=== PATIENT | female | born 1940 | race Caucasian/White ===

== ENCOUNTER → 2017-09-10 | Outpatient (CLI) | payer MEDICARE, OTHER ==
--- NOTE | 2017-09-14 14:21 | MM ---
Reason for exam: screening (asymptomatic). Last mammogram was performed 3 years ago. History: Patient is postmenopausal and has history of endometrial cancer at age 60. Family history of breast cancer in maternal cousin. Benign excisional biopsy of the left breast. Took estrogen for 15 years. Took progesterone for 15 years. Physical Findings: A clinical breast exam by your physician is recommended on an annual basis and results should be correlated with mammographic findings. MG 3D Screening Mammo W/Cad Bilateral CC and MLO view(s) were taken. Prior study comparison: September 04, 2014, bilateral MG screening mammo w CAD. March 15, 2013, bilateral digital screening mammo w/CAD. There are scattered fibroglandular densities. There is chronic nodularity in the right axilla. There is no discrete abnormality. ASSESSMENT: Benign, BI-RAD 2 RECOMMENDATION: Routine screening mammogram of both breasts in 1 year.
== END | disposition home or self-care (01) ==
LOC: RADMAMWWP 07:27
PROVIDERS: ATTEND Family Medicine
DX: Z12.31 Encounter for screening mammogram for malignant neoplasm of breast (principal)
CPT/HCPCS: 77063; 77067

== ENCOUNTER → 2018-04-04 | Outpatient (CLI) | payer MEDICARE, OTHER ==
--- NOTE | 2018-04-04 11:24 | US ---
EXAMINATION TYPE: US gallbladder DATE OF EXAM: 04/04/2018 COMPARISON: NONE CLINICAL HISTORY: 78-year-old female Dyspepsia K30. TECHNIQUE: Multiple sonographic images of the right upper quadrant are obtained. FINDINGS: EXAM MEASUREMENTS: Liver Length: 11.9 cm Gallbladder Wall: 0.2 cm CBD: 0.3 cm Right Kidney: 10.0 x 4.1 x 5.2 cm Pancreas: Most of the pancreas is seen and shows no gross abnormality. There is a prominent duct at 2.5 mm falls within acceptable limits Liver: wnl Gallbladder: wnl Evidence for sonographic Caceres's sign: no CBD: wnl Right Kidney: No hydronephrosis . The inferior pole is obscured by bowel gas IMPRESSION: No evidence for gallstones or biliary ductal dilatation.
== END | disposition home or self-care (01) ==
LOC: RADUSWWP 09:00
PROVIDERS: ATTEND Family Medicine
DX: K30 Functional dyspepsia (principal)
CPT/HCPCS: 76705

== ENCOUNTER 2018-04-07 10:21 | Day surgery (SDC) | payer MEDICARE, OTHER ==
[2018-04-06 09:15] VITALS: BMI 24.1
[2018-04-07 11:10] VITALS: TEMP 98.6
[2018-04-07] MEDS ORDERED: LACTATED RINGERS 1,000 ML IV ONE (11:25)
[2018-04-07] MEDS ORDERED: LIDOCAINE 1% 20 ML VIAL (10MG/ML) FOR IV START INTRADERMA ONE (11:25)
[2018-04-07] MEDS ORDERED: LIDOCAINE 1% INJ 10MG/ML (20 ML MDV) ONE (11:56)
[2018-04-07] MEDS ORDERED: MIDAZOLAM 2 MG/2 ML VIAL ONE (11:56)
--- NOTE | 2018-04-07 11:58 | P.GSHP ---
History of Present Illness H&P Date: 04/07/18 Chief Complaint: Epigastric pain, peptic ulcer disease Cyst 78-year-old female who's had complaints of epigastric pain. She has a previous history of ulcer disease. She states her pain feels similar to her previous gastritis. Past Medical History Past Medical History: Cancer, Hypertension, Memory Impairment Additional Past Medical History / Comment(s): STATES BEGINNING ALZHEIMERS., BACK PAIN, HX ENDOMETRIAL CANCER, TESTS POSITIVE FOR TB-EXPOSURE A CHILD., STATES HAVING STOMACH PAIN AND NAUSEA. History of Any Multi-Drug Resistant Organisms: None Reported Past Surgical History: Hysterectomy Additional Past Surgical History / Comment(s): CATARACTS Past Anesthesia/Blood Transfusion Reactions: Motion Sickness, Postoperative Nausea & Vomiting (PONV) Past Psychological History: No Psychological Hx Reported Smoking Status: Former smoker Past Alcohol Use History: Occasional Additional Past Alcohol Use History / Comment(s): STATES SHE DRINKS BEER, OVER 7 DRINKS/WEEK. SMOKED A TEENAGER. Past Drug Use History: None Reported - Past Family History Mother Family Medical History: Cancer Additional Family Medical History / Comment(s): OVARIAN Medications and Allergies Home Medications Medication Instructions Recorded Confirmed Type Alendronate Sodium [Fosamax] 70 mg PO WEEKLY 04/06/18 04/07/18 History Aspirin 325 mg PO DAILY 04/06/18 04/06/18 History Atorvastatin [Lipitor] 20 mg PO DAILY 04/06/18 04/07/18 History Celecoxib [CeleBREX] 200 mg PO DAILY 04/06/18 04/06/18 History Donepezil [Aricept] 10 mg PO HS 04/06/18 04/07/18 History Ergocalciferol [Vitamin D2] 50,000 unit PO Q7D 04/06/18 04/07/18 History Levothyroxine Sodium [Synthroid] 50 mcg PO DAILY 04/06/18 04/07/18 History Multivitamins, Thera [Multivitamin 1 tab PO DAILY 04/06/18 04/07/18 History (formulary)] amLODIPine [Norvasc] 25 mg PO DAILY 04/06/18 04/07/18 History Allergies Allergy/AdvReac Type Severity Reaction Status Date / Time erythromycin base Allergy Unknown Rash/Hives, Verified 04/06/18 09:17 [From E-Mycin] Red Skin Sulfa (Sulfonamide Allergy Unknown Rash/Hives, Verified 04/06/18 09:17 Antibiotics) Red Skin Surgical - Exam Vital Signs Temp Pulse Resp BP Pulse Ox 98.6 F 72 16 184/77 99 04/07/18 11:09 04/07/18 11:09 04/07/18 11:09 04/07/18 11:09 04/07/18 11:09 - General well developed, well nourished, no distress - Eyes PERRL - ENT normal pinna - Neck no masses - Respiratory normal expansion - Cardiovascular Rhythm: regular - Abdomen Abdomen: soft, non tender Assessment and Plan Assessment: History gastritis, epigastric pain. We'll perform EGD
--- NOTE | 2018-04-07 12:04 | P.OP ---
Date of Procedure: 04/07/18 Preoperative Diagnosis: Epigastric dull pain Postoperative Diagnosis: Antral gastritis Anesthesia: MAC Surgeon: Flash Arora Pathology: other (Antrum) Condition: stable Disposition: PACU Description of Procedure: Patient's placed on the endoscopy table in the lateral position. She received IV sedation. The gastroscope was placed patient oropharynx passed in the esophagus and stomach. Scope was then placed through the pylorus. The first and second portion of duodenum appeared normal. The scope was then brought back the antrum and this was mildly inflamed. A biopsies performed. The scope was then retroflexed and there was a moderate size hiatal hernia. The GE junction was at 38 cm. The distal esophagus appeared inflamed and a biopsies performed. The proximal esophagus appeared normal. The scope was withdrawn for patient. There is no evidence of any active GI bleed.
[2018-04-07 12:12] VITALS: RESP 18
[2018-04-07 12:39] VITALS: BP 148/71; PULSE 74
== END 2018-04-07 13:28 | disposition home or self-care (01) ==
LOC: ORWHC2ENDO 10:21
PROVIDERS: ATTEND Surgery
DX: K31.9 Disease of stomach and duodenum, unspecified (principal); K21.0 Gastro-esophageal reflux disease with esophagitis; K44.9 Diaphragmatic hernia without obstruction or gangrene; I10 Essential (primary) hypertension; Z87.891 Personal history of nicotine dependence; Z85.42 Personal history of malignant neoplasm of other parts of uterus; E78.49 Other hyperlipidemia; Z79.82 Long term (current) use of aspirin; Z79.890 Hormone replacement therapy; Z79.899 Other long term (current) drug therapy; Z88.1 Allergy status to other antibiotic agents; Z88.2 Allergy status to sulfonamides
CPT/HCPCS: 88305; 43239; J2250; J2001

== ENCOUNTER → 2018-04-11 | Outpatient (CLI) | payer MEDICARE, OTHER ==
--- NOTE | 2018-04-11 09:11 | NM ---
EXAMINATION TYPE: NM hepatobiliary w EF DATE OF EXAM: 04/11/2018 COMPARISON: Gallbladder ultrasound from one week ago. HISTORY: Diminished appetite and epigastric pain with nausea and vomiting. TECHNIQUE: After the intravenous administration of 5.19 mCi Tc 99m Mebrofenin hepatobiliary scintigra phy is performed. Immediate images post injection. FINDINGS: There is satisfactory initial accumulation of tracer by the liver. The gallbladder is visualized wit hin 10 minutes. The small bowel activity is noted within 30 minutes. At one hour 8 ounces of oral e nsure plus is given to mimic CCK and gallbladder ejection fraction is calculated at 82 %, not diminis hed from the normal range. Therefore there is no scintigraphic evidence of cystic or common bile concepcion t obstruction to suggest acute cholecystitis . IMPRESSION: The ejection fraction is 82%, some consider this abnormal or a hyperkinetic response.
== END | disposition home or self-care (01) ==
LOC: RADNMMAIN 06:57
PROVIDERS: ATTEND Surgery
DX: K82.8 Other specified diseases of gallbladder (principal)
CPT/HCPCS: 78226; A9537

== ENCOUNTER 2018-04-29 09:30 | Day surgery (SDC) | payer MEDICARE, OTHER ==
[2018-04-27 10:07] VITALS: BMI 24.1
[~2018-04-29 09:30] MED LIST: DEXAMETHASONE SOD PHOSPHATE 10 MG/ML 1 ML VIAL IV ONE; HEPARIN SODIUM,PORCINE 5,000 UNIT/ML 1 ML VIAL SQ ONE; LACTATED RINGERS 1,000 ML IV SCH; LIDOCAINE 1% 20 ML VIAL (10MG/ML) FOR IV START INTRADERMA PRN; MIDAZOLAM (PF) 2 MG/2 ML VIAL IV PRN; ceFAZolin IN SWFI 2 GM/20 ML SYRINGE IVP ONE; fentaNYL (PF) 50 MCG/ML 2 ML AMP IV PRN
[2018-04-29] MEDS ORDERED: LACTATED RINGERS 1,000 ML IV ONE (09:45)
[2018-04-29] MEDS ORDERED: DEXAMETHASONE SOD PHOS (MDV) 100 MG/10 ML VIAL IVP ONE (09:58)
[2018-04-29] MEDS ORDERED: SCOPOLAMINE 1.5MG/72HR PATCH TRANSDERM ONE (09:59)
[2018-04-29] MEDS ORDERED: ONDANSETRON 4 MG/2 ML VIAL IVP ONE (09:59)
--- NOTE | 2018-04-29 10:05 | P.GSHP ---
History of Present Illness H&P Date: 04/29/18 Chief Complaint: Right upper quadrant pain This is a 78-year-old female who presents today for laparoscopic cholecystectomy. She's had complaints of right quadrant pain. Her recent HIDA scan shows an elevated ejection fraction consistent with biliary hyperkinesis. Past Medical History Past Medical History: Cancer, Dementia, Hearing Disorder / Deafness, Hyperlipidemia, Hypertension, Memory Impairment, Thyroid Disorder Additional Past Medical History / Comment(s): HIATAL HERNIA, ALZHEIMERS, BACK PAIN. HX ENDOMETRIAL CANCER in 1999. Recent STOMACH PAIN AND NAUSEA. "Tinnitus/ Age related hearing loss." History of Any Multi-Drug Resistant Organisms: None Reported Past Surgical History: Hysterectomy Additional Past Surgical History / Comment(s): BILATERAL CATARACTS. Past Anesthesia/Blood Transfusion Reactions: Motion Sickness, Postoperative Nausea & Vomiting (PONV) Past Psychological History: No Psychological Hx Reported Smoking Status: Former smoker Past Alcohol Use History: Occasional Additional Past Alcohol Use History / Comment(s): SMOKED A TEENAGER. Past Drug Use History: None Reported - Past Family History Mother Family Medical History: Cancer Additional Family Medical History / Comment(s): OVARIAN CANCER. Medications and Allergies Home Medications Medication Instructions Recorded Confirmed Type Atorvastatin [Lipitor] 20 mg PO QAM 04/06/18 04/27/18 History Celecoxib [CeleBREX] 200 mg PO DAILY 04/06/18 04/27/18 History Donepezil [Aricept] 10 mg PO HS 04/06/18 04/27/18 History Ergocalciferol [Vitamin D2] 50,000 unit PO Q7D 04/06/18 04/27/18 History Levothyroxine Sodium [Synthroid] 50 mcg PO QAM 04/06/18 04/27/18 History Multivitamins, Thera [Multivitamin 1 tab PO DAILY 04/06/18 04/27/18 History (formulary)] amLODIPine [Norvasc] 10 mg PO QAM 04/27/18 04/27/18 History Allergies Allergy/AdvReac Type Severity Reaction Status Date / Time erythromycin base Allergy Unknown Rash/Hives, Verified 04/27/18 09:47 [From E-Mycin] Red Skin Sulfa (Sulfonamide Allergy Unknown Rash/Hives, Verified 04/27/18 09:47 Antibiotics) Red Skin Surgical - Exam Vital Signs Temp Pulse Resp BP Pulse Ox 98.1 F 89 18 161/74 99 04/29/18 09:44 04/29/18 09:44 04/29/18 09:44 04/29/18 09:44 04/29/18 09:44 - General well developed, no distress - Eyes PERRL - ENT normal pinna - Neck no masses - Respiratory normal expansion - Cardiovascular Rhythm: regular - Abdomen Abdomen: soft, non tender Assessment and Plan Assessment: Right upper quadrant pain Chronic low cholecystitis Biliary hyperkinesis Laparoscopic cholecystectomy.
[2018-04-29] MEDS ORDERED: MIDAZOLAM 2 MG/2 ML VIAL ONE (11:41)
[2018-04-29] MEDS ORDERED: fentaNYL (PF) 50 MCG/ML 2 ML AMP ONE (11:41)
[2018-04-29] MEDS ORDERED: KETOROLAC 30 MG/ML 1 ML VIAL ONE (11:41)
[2018-04-29] MEDS ORDERED: LIDOCAINE 1% INJ 10MG/ML (20 ML MDV) ONE (11:41)
[2018-04-29] MEDS ORDERED: PROPOFOL 10 MG/ML 20 ML VIAL IV ONE (11:41)
[2018-04-29] MEDS ORDERED: ROCURONIUM BROMIDE 10 MG/ML 10 ML VIAL IV ONE (11:41)
[2018-04-29] MEDS ORDERED: NEOSTIGMINE 1 MG/ML 10 ML VIAL ONE (11:41)
[2018-04-29] MEDS ORDERED: GLYCOPYRROLATE 0.2 MG/ML 2 ML VIAL ONE (11:41)
[2018-04-29] MEDS ORDERED: BUPIVACAIN-EPI 0.25%-1:200,000 30 ML VIAL SQ ONE (12:04)
--- NOTE | 2018-04-29 12:17 | P.OP ---
Date of Procedure: 04/29/18 Preoperative Diagnosis: Cholecystitis Postoperative Diagnosis: Cholecystitis Procedure(s) Performed: Laparoscopic cholecystectomy Anesthesia: INGRID Surgeon: Flash Arora Estimated Blood Loss (ml): 5 Pathology: other (Gallbladder) Condition: stable Disposition: PACU Description of Procedure: The patient was placed on the operating table. The patient received a general endotracheal tube anesthesia. The patients abdomen was prepped and draped in the usual sterile fashion. Through an infraumbilical stab incision, the fascia of the anterior abdominal wall was grasped with a pair of Kochers and then the Veress needle was placed in the peritoneal cavity. Position of the Veress needle was confirmed with positive drop test. The abdomen was then insufflated. After adequate insufflation, the 10 mm trocar was placed in the peritoneal cavity. Following this the laparoscope was placed in the peritoneal cavity. The patient was placed in the head-up, right side up position and then a 5 mm trocar was placed in the right lateral and right subcostal position under direct visualization. A 8 mm trocar was placed in the epigastric position. The gallbladder was grasped in the fundus and infundibulum. Traction on the gallbladder was placed in the lateral and the cephalad positions. The triangle of Calot was visualized.. The cystic duct was bluntly dissected until the union of the cystic duct and common bile duct was seen. The cystic duct was then divided and sealed with the Harmonic scissors. A PDS Endoloop was then placed throughout the cystic duct stump. The cystic artery divided and sealed with the Harmonic scissors. The gallbladder was then removed from the liver bed using Harmonic scissors. The gallbladder was then extracted through the epigastric port site. Operative field was checked for any bleeding spots and Harmonic scissors was used to coagulate the liver bed. The abdomen was irrigated. The trocars were removed. The skin was closed using interrupted 3-0 Vicryl suture. Dermabond dressing were applied. The patient tolerated the procedure well.
[2018-04-29 12:33] VITALS: TEMP 97.6
[2018-04-29] MEDS ORDERED: SODIUM CHLORIDE 0.9% 1,000 ML IV ONE ×2 (12:54)
[2018-04-29 14:15] VITALS: BP 134/82; PULSE 90; RESP 18
== END 2018-04-29 14:29 | disposition home or self-care (01) ==
LOC: OR 09:30
PROVIDERS: ATTEND Surgery
DX: K81.1 Chronic cholecystitis (principal); H91.90 Unspecified hearing loss, unspecified ear; E78.5 Hyperlipidemia, unspecified; I10 Essential (primary) hypertension; F02.80 Dementia in other diseases classified elsewhere, unspecified severity, without behavioral disturbance, psychotic disturbance, mood disturbance, and anxiety; G30.9 Alzheimer's disease, unspecified; E07.9 Disorder of thyroid, unspecified; Z85.42 Personal history of malignant neoplasm of other parts of uterus; Z87.891 Personal history of nicotine dependence; Z88.1 Allergy status to other antibiotic agents; Z90.710 Acquired absence of both cervix and uterus; Z79.890 Hormone replacement therapy; Z79.1 Long term (current) use of non-steroidal anti-inflammatories (NSAID); Z79.899 Other long term (current) drug therapy; Z88.2 Allergy status to sulfonamides
CPT/HCPCS: 88304; 47562; J2250; J1644; J2710; J2405; J2001; J3010; J1885; J1100; J2704; J0690

== ENCOUNTER → 2018-11-18 | Outpatient (CLI) | payer MEDICARE ==
--- NOTE | 2018-11-21 10:25 | MM ---
Reason for exam: screening (asymptomatic). Last mammogram was performed 1 year and 2 months ago. History: Patient is postmenopausal and has history of endometrial cancer at age 60. Family history of breast cancer in maternal cousin. Benign excisional biopsy of the left breast. Took estrogen for 15 years. Took progesterone for 15 years. Physical Findings: A clinical breast exam by your physician is recommended on an annual basis and results should be correlated with mammographic findings. MG Screening Mammo w CAD Bilateral CC and MLO view(s) were taken. XCCL view(s) were taken of the left breast. Prior study comparison: September 10, 2017, bilateral MG 3d screening mammo w/cad. September 04, 2014, bilateral MG screening mammo w CAD. There are scattered fibroglandular densities. There is chronic nodularity in the right axilla. There is no discrete abnormality. ASSESSMENT: Negative, BI-RAD 1 RECOMMENDATION: Routine screening mammogram of both breasts in 1 year.
== END | disposition home or self-care (01) ==
LOC: RADMAMWWP 12:19
PROVIDERS: ATTEND Family Medicine
DX: Z12.31 Encounter for screening mammogram for malignant neoplasm of breast (principal)
CPT/HCPCS: 77067

== ENCOUNTER 2021-01-09 19:32 | Emergency (ER) | payer MEDICARE ==
[2021-01-09 19:41] VITALS: BP 121/68; PULSE 77; RESP 18; TEMP 97.8
--- NOTE | 2021-01-09 21:18 | CT ---
EXAMINATION TYPE: CT brain sasha boogie DATE OF EXAM: 01/09/2021 COMPARISON: None HISTORY: fall, facial injury CT DLP: 1241.4 mGycm Automated exposure control for dose reduction was used. TECHNIQUE: CT scan of the head and cervical spine are performed without contrast. FINDINGS: There is no acute intracranial hemorrhage, mass effect, or midline shift identified. The ventricles and sulci are within normal limits in size. The globes are intact and the visualized sin uses are clear. Age appropriate cerebral volume retraction. Cervical spine is visualized in its entirety from C1 through upper thoracic levels and demonstrates s atisfactory alignment without evidence of acute fracture or dislocation. Prevertebral soft tissue ap pears within normal limits. The C1-C2 articulation is unremarkable. Degenerative changes of the cer vical spine. Emphysematous changes. IMPRESSION: 1. There is no acute fracture or dislocation evident in the cervical spine. 2. No acute intracranial hemorrhage, mass effect, or midline shift is seen.
--- NOTE | 2021-01-09 21:22 | CT ---
EXAMINATION TYPE: CT facial bones wo con DATE OF EXAM: 01/09/2021 COMPARISON: None HISTORY: Fall, facial injury CT DLP: 1241.4 mGycm Automated exposure control for dose reduction was used. TECHNIQUE: CT scan of the sinuses is performed without contrast, axial images are obtained, coronal r eformatted images are also reviewed. FINDINGS: Mildly displaced fractures of the nasal bones The paranasal sinuses including the frontal, ethmoid, sphenoid, and maxillary sinuses bilaterally are well-aerated without abnormal opacification. The ost iomeatal complex is patent bilaterally on the coronal images. Visualized portion of mastoid air cells show no abnormal opacification. The globes are intact bilate rally. IMPRESSION: Minimally displaced fracture of the nasal bones without significant overlying swelling. C orrelate for point tenderness.
--- NOTE | 2021-01-09 21:45 | ED ---
General Adult HPI - General Chief complaint: Fall Stated complaint: Fall-Nose Injury Time Seen by Provider: 01/09/21 19:47 Source: patient, RN notes reviewed Mode of arrival: ambulatory Limitations: no limitations - History of Present Illness Initial comments: 80-year-old female with a past medical history of hyperlipidemia, hypertension, memory impairment presents to the emergency room for facial injury. Patient was going down the stairs at her porch and tripped on the last stair and fell. She hit her face on the ground. No loss of consciousness. No blood thinners. Patient states this was about 6 hours prior to arrival. Patient's nose was bleeding but it then stopped. However just prior to arrival started bleeding again so this prompted patient to come into the ER.Patient has no other complaints at this time including shortness of breath, chest pain, abdominal pain, nausea or vomiting, headache, or visual changes. - Related Data Home Medications Medication Instructions Recorded Confirmed Atorvastatin [Lipitor] 20 mg PO QAM 04/06/18 04/27/18 Celecoxib [CeleBREX] 200 mg PO DAILY 04/06/18 04/27/18 Donepezil [Aricept] 10 mg PO HS 04/06/18 04/27/18 Ergocalciferol [Vitamin D2] 50,000 unit PO Q7D 04/06/18 04/27/18 Levothyroxine Sodium [Synthroid] 50 mcg PO QAM 04/06/18 04/27/18 Multivitamins, Thera [Multivitamin 1 tab PO DAILY 04/06/18 04/27/18 (formulary)] amLODIPine [Norvasc] 10 mg PO QAM 04/27/18 04/27/18 Previous Rx's Medication Instructions Recorded Docusate [Colace] 100 mg PO BID #20 capsule 04/29/18 HYDROcodone/APAP 7.5-325MG [[place] 1 tab PO Q4H PRN 3 Days #18 tab 04/29/18 7.5-325] Allergies Allergy/AdvReac Type Severity Reaction Status Date / Time erythromycin base Allergy Unknown Rash/Hives, Verified 01/09/21 19:41 [From E-Mycin] Red Skin Sulfa (Sulfonamide Allergy Unknown Rash/Hives, Verified 01/09/21 19:41 Antibiotics) Red Skin Review of Systems ROS Statement: Those systems with pertinent positive or pertinent negative responses have been documented in the HPI. ROS Other: All systems not noted in ROS Statement are negative. Past Medical History Past Medical History: Cancer, Dementia, Hearing Disorder / Deafness, Hyperlipidemia, Hypertension, Memory Impairment, Thyroid Disorder Additional Past Medical History / Comment(s): HIATAL HERNIA, ALZHEIMERS, BACK PAIN. HX ENDOMETRIAL CANCER in 1999. Recent STOMACH PAIN AND NAUSEA. "Tinnitus/Age related hearing loss." History of Any Multi-Drug Resistant Organisms: None Reported Past Surgical History: Hysterectomy Additional Past Surgical History / Comment(s): BILATERAL CATARACTS. Past Anesthesia/Blood Transfusion Reactions: Motion Sickness, Postoperative Nausea & Vomiting (PONV) Past Psychological History: No Psychological Hx Reported Smoking Status: Never smoker Past Alcohol Use History: Occasional Past Drug Use History: None Reported - Past Family History Mother Family Medical History: Cancer Additional Family Medical History / Comment(s): OVARIAN CANCER. General Exam Limitations: no limitations General appearance: alert, in no apparent distress Head exam: Present: atraumatic Eye exam: Present: normal appearance, PERRL, EOMI. Absent: scleral icterus, conjunctival injection ENT exam: Present: normal exam, mucous membranes moist Neck exam: Present: normal inspection, full ROM. Absent: tenderness Respiratory exam: Present: normal lung sounds bilaterally. Absent: respiratory distress, wheezes Cardiovascular Exam: Present: regular rate, normal rhythm, normal heart sounds GI/Abdominal exam: Present: soft, normal bowel sounds. Absent: distended, tenderness Neurological exam: Present: alert Course Vital Signs 01/09/21 19:36 Temperature 97.8 F Pulse Rate 77 Respiratory 18 Rate Blood Pressure 121/68 O2 Sat by Pulse 97 Oximetry Medical Decision Making - Medical Decision Making CT brain shows no acute intracranial hemorrhage, mass effect, or midline shift. CT cervical spine shows no acute fracture or dislocation. CT facial bones does show a minimally displaced fracture of the nasal bones without significant overlying swelling. At this time patient admitted. Follow-up with primary care in ENT. She has an appointment in the morning with her primary care doctor. She will return here for any worsening symptoms. Disposition Clinical Impression: Nasal bone fracture Disposition: HOME SELF-CARE Condition: Good Instructions (If sedation given, give patient instructions): Nasal Fracture (ED) Additional Instructions: Please follow up with primary care or ENT. Try not to blow nose. Return to the ER for any worsening symptoms. Is patient prescribed a controlled substance at d/c from ED?: No Referrals: Diamond Ocasio DO [Primary Care Provider] - 1-2 days Sajan Webb MD [STAFF PHYSICIAN] - 1-2 days Time of Disposition: 21:48
== END 2021-01-09 22:03 | disposition home or self-care (01) ==
LOC: EC 19:32
DX: S02.2XXA Fracture of nasal bones, initial encounter for closed fracture (principal); I10 Essential (primary) hypertension; E78.5 Hyperlipidemia, unspecified; W01.198A Fall on same level from slipping, tripping and stumbling with subsequent striking against other object, initial encounter; Y92.008 Other place in unspecified non-institutional (private) residence as the place of occurrence of the external cause
CPT/HCPCS: 70450; 70486; 72125; 99284

== ENCOUNTER 2021-02-14 09:45 | Emergency (ER) | payer MEDICARE ==
[2021-02-14 09:59] VITALS: BP 135/90; PULSE 93; RESP 18; TEMP 98
[2021-02-14] MEDS ORDERED: KETOROLAC 15 MG/ML 1 ML VIAL IM STA (10:06)
--- NOTE | 2021-02-14 11:10 | XR ---
Right shoulder HISTORY: Trauma and pain 3 views of the right shoulder, no comparisons Bone mineralization is reduced. Right lung apex as visualized is normal. There is hypertrophic change of the acromioclavicular joint. Alignment is maintained. There are overlying artifacts. IMPRESSION: No acute fracture or dislocation is evident
--- NOTE | 2021-02-14 11:13 | XR ---
Lumbar spine HISTORY: Trauma and pain 3 views of the lumbar spine related to lumbar MRI dated 2009 There is loss of height of the superior endplate of T12. Spinal curvature is noted. Sclerosis is pres ent posterior elements lumbar spine. Anterolisthesis grade 1 L4-5, L5-S1. Atelectasis is grade 1 L3-4 . There is multilevel spondylosis. Loss of disc height is present in vertebral levels consistent with disc desiccation and degenerative disc disease. Bone mineralization is reduced. IMPRESSION: Degenerative disc disease, spinal listhesis, facet arthropathy, spinal curvature and oste openia. Loss of height of superior plate of T12 is noted on the frontal view, correlate for subacute osteoporotic compression fracture.
--- NOTE | 2021-02-14 11:17 | XR ---
Fourth digit left hand HISTORY: Pain and swelling 3 views of the fourth digit left hand There is a approximate 2 mm indeterminate ossific density medial and posterior to the distal aspect o f the proximal phalanx of the fourth digit left hand. There is soft tissue swelling present. Bony exc rescences noted dorsally at the proximal interphalangeal joint of the fourth digit left hand. IMPRESSION: Osteoarthritic changes, findings could be secondary to remote trauma, correlate
--- NOTE | 2021-02-14 11:25 | ED ---
Fall HPI - General Chief Complaint: Fall Stated Complaint: trip & fall, back pain Time Seen by Provider: 02/14/21 10:00 Source: patient, RN notes reviewed Mode of arrival: ambulatory - History of Present Illness Initial Comments: Patient is an 81-year-old female that presents to the emergency department complaining of low back right shoulder and left ring finger pain. She notes she fell approximately 2 days ago. She notes she was walking to the bathroom when she tried taking her pants off to save some time prior and tripped over the [employer] patient leg. She noted that she is just experiencing soreness in pain or low back shoulder left ring finger. She denied any saddle anesthesia, bladder or bowel incontinence/retention. She was otherwise well-appearing. She denied any other issues or complaints. She denied chest pain shortness of breath headache nausea vomiting diarrhea constipation fever fatigue chills. - Related Data Home Medications Medication Instructions Recorded Confirmed Atorvastatin [Lipitor] 20 mg PO QAM 04/06/18 04/27/18 Celecoxib [CeleBREX] 200 mg PO DAILY 04/06/18 04/27/18 Donepezil [Aricept] 10 mg PO HS 04/06/18 04/27/18 Ergocalciferol [Vitamin D2] 50,000 unit PO Q7D 04/06/18 04/27/18 Levothyroxine Sodium [Synthroid] 50 mcg PO QAM 04/06/18 04/27/18 Multivitamins, Thera [Multivitamin 1 tab PO DAILY 04/06/18 04/27/18 (formulary)] amLODIPine [Norvasc] 10 mg PO QAM 04/27/18 04/27/18 Previous Rx's Medication Instructions Recorded Docusate [Colace] 100 mg PO BID #20 capsule 04/29/18 HYDROcodone/APAP 7.5-325MG [[place] 1 tab PO Q4H PRN 3 Days #18 tab 04/29/18 7.5-325] Allergies Allergy/AdvReac Type Severity Reaction Status Date / Time erythromycin base Allergy Unknown Rash/Hives, Verified 02/14/21 09:57 [From E-Mycin] Red Skin Sulfa (Sulfonamide Allergy Unknown Rash/Hives, Verified 02/14/21 09:57 Antibiotics) Red Skin Review of Systems ROS Statement: Those systems with pertinent positive or pertinent negative responses have been documented in the HPI. ROS Other: All systems not noted in ROS Statement are negative. Past Medical History Past Medical History: Cancer, Dementia, Hearing Disorder / Deafness, Hyperlipidemia, Hypertension, Memory Impairment, Thyroid Disorder Additional Past Medical History / Comment(s): HIATAL HERNIA, ALZHEIMERS, BACK PAIN. HX ENDOMETRIAL CANCER in 1999. Recent STOMACH PAIN AND NAUSEA. "Tinnitus/Age related hearing loss." History of Any Multi-Drug Resistant Organisms: None Reported Past Surgical History: Hysterectomy Additional Past Surgical History / Comment(s): BILATERAL CATARACTS. Past Anesthesia/Blood Transfusion Reactions: Motion Sickness, Postoperative Nausea & Vomiting (PONV) Past Psychological History: No Psychological Hx Reported Smoking Status: Never smoker Past Alcohol Use History: Occasional Past Drug Use History: None Reported - Past Family History Mother Family Medical History: Cancer Additional Family Medical History / Comment(s): OVARIAN CANCER. General Exam Limitations: no limitations General appearance: alert, in no apparent distress Head exam: Present: atraumatic, normocephalic, normal inspection Eye exam: Present: normal appearance, PERRL, EOMI. Absent: scleral icterus, conjunctival injection, periorbital swelling ENT exam: Present: normal exam, mucous membranes moist Neck exam: Present: normal inspection Respiratory exam: Present: normal lung sounds bilaterally. Absent: respiratory distress, wheezes, rales, rhonchi, stridor Cardiovascular Exam: Present: regular rate, normal rhythm, normal heart sounds. Absent: systolic murmur, diastolic murmur, rubs, gallop, clicks GI/Abdominal exam: Present: soft, normal bowel sounds. Absent: distended, tenderness, guarding, rebound, rigid Extremities exam: Present: normal inspection, full ROM, normal capillary refill. Absent: tenderness, pedal edema, joint swelling, calf tenderness Back exam: Present: normal inspection, tenderness (Mid lower back) Neurological exam: Present: alert, oriented X3 Psychiatric exam: Present: normal affect, normal mood Skin exam: Present: warm, dry, intact, normal color. Absent: rash Course Vital Signs 02/14/21 09:57 Temperature 98 F Pulse Rate 93 Respiratory 18 Rate Blood Pressure 135/90 O2 Sat by Pulse 95 Oximetry Medical Decision Making - Medical Decision Making 81-year-old female complaining of low back pain right shoulder pain and left ring finger pain. X-rays of the low back, right shoulder and left ring finger ordered. 15 mg of Toradol for pain ordered. X-ray left ring finger: Osteoarthritic changes findings could be secondary to remote trauma. Correlate. There is a approximate 2 mm indeterminate ossific density medial and posterior to the distal aspect of the proximal phalanx of the fourth digit left hand. There is soft tissue swelling present bony excrescences noted distally and at the proximal interphalangeal joint of the fourth digit left hand. X-ray lumbar spine: Degenerative disc disease. Spinal listhesis. Facet arthropathy, spinal curvature and osteopenia. Loss of height of superior endplate of T12 is noted on the frontal view correlate for subacute osteoporotic compression fracture. Right shoulder x-ray: No acute fracture dislocation noted. Ring removed from left ring finger. Case discussed with Dr. Gonzales, patient discharge without orthopedics. - Radiology Data Radiology results: report reviewed, image reviewed X-ray left ring finger: Osteoarthritic changes findings could be secondary to remote trauma. Correlate. There is a approximate 2 mm indeterminate ossific density medial and posterior to the distal aspect of the proximal phalanx of the fourth digit left hand. There is soft tissue swelling present bony excrescences noted distally and at the proximal interphalangeal joint of the fourth digit left hand. X-ray lumbar spine: Degenerative disc disease. Spinal listhesis. Facet arthropathy, spinal curvature and osteopenia. Loss of height of superior endplate of T12 is noted on the frontal view correlate for subacute osteoporotic compression fracture. Right shoulder x-ray: No acute fracture dislocation noted. Disposition Clinical Impression: Fall, T12 compression fracture Disposition: HOME SELF-CARE Condition: Stable Instructions (If sedation given, give patient instructions): Fall Prevention for Older Adults (ED) Additional Instructions: Please return to the Emergency Department if symptoms worsen or any other concerns. Follow-up primary care 1-2 days. Take Tylenol and Motrin alternating every 3 hours for pain. Follow-up with orthopedics as needed. Is patient prescribed a controlled substance at d/c from ED?: No Referrals: Diamond Ocasio DO [Primary Care Provider] - 1-2 days Migel Cullen DO [Doctor of Osteopathic Medicine] - 1-2 days Time of Disposition: 12:28
== END 2021-02-14 12:44 | disposition home or self-care (01) ==
LOC: EC 09:45
DX: S22.080A Wedge compression fracture of T11-T12 vertebra, initial encounter for closed fracture (principal); F03.90 Unspecified dementia, unspecified severity, without behavioral disturbance, psychotic disturbance, mood disturbance, and anxiety; E78.5 Hyperlipidemia, unspecified; I10 Essential (primary) hypertension; E07.9 Disorder of thyroid, unspecified; Z88.1 Allergy status to other antibiotic agents; Z88.2 Allergy status to sulfonamides; Z85.42 Personal history of malignant neoplasm of other parts of uterus; Z90.710 Acquired absence of both cervix and uterus; W01.10XA Fall on same level from slipping, tripping and stumbling with subsequent striking against unspecified object, initial encounter
CPT/HCPCS: 99283 ×2; 96372 ×2; 72100; 73030; 73140; J1885

== ENCOUNTER → 2023-02-19 | Outpatient (CLI) | payer MEDICARE | END | disposition home or self-care (01) | LOC: LABPAT 08:20 | PROVIDERS: ATTEND Orthopaedic Surgery | DX: Z01.812 Encounter for preprocedural laboratory examination (principal); M16.11 Unilateral primary osteoarthritis, right hip; Z22.322 Carrier or suspected carrier of Methicillin resistant Staphylococcus aureus | CPT/HCPCS: 86850; 86900; 86901; 87070 ==

== ENCOUNTER 2023-03-01 13:07 | Day surgery (SDC) | payer MEDICARE ==
--- NOTE | 2023-02-28 18:25 | HP ---
HISTORY AND PHYSICAL DATE OF SURGERY: 03/01/2023. HISTORY OF PRESENT ILLNESS: Litzy Finn is an 83-year-old patient, seen with symptomatic right hip osteoarthritis. We discussed options for treatment. She elected to proceed with direct anterior right total hip arthroplasty. Consent was obtained. Medical clearance was provided by Dr. Diamond Ocasio. PAST MEDICAL HISTORY: Hyperlipidemia, hypothyroidism, and osteoporosis. PAST SURGICAL HISTORY: Noncontributory. DAILY MEDICATIONS: 1. Atorvastatin. 2. Celebrex. 3. Levothyroxine. 4. Pantoprazole. 5. Benazepril. ALLERGIES: 1. Erythromycin. 2. Sulfa. SOCIAL HISTORY: She denies tobacco use. PHYSICAL EVALUATION OF THE RIGHT HIP: She has diffuse tenderness about the hip girdle. Positive hip impingement sign. Straight-leg raise is negative. Her distal neurovascular exam is intact. IMAGING STUDIES: Radiographs of right hip reveal severe osteoarthritic changes. IMPRESSION: 1. Right hip osteoarthritis. 2. Hyperlipidemia. 3. Hypothyroidism. PLAN: Direct anterior right total hip arthroplasty. MMODL / IJN: [id number] /
[~2023-03-01 13:07] MED LIST changes: +ACETAMINOPHEN TAB 500 MG TAB PO PRN; -DEXAMETHASONE SOD PHOSPHATE 10 MG/ML 1 ML VIAL IV ONE; -HEPARIN SODIUM,PORCINE 5,000 UNIT/ML 1 ML VIAL SQ ONE; +HYDROmorphone 0.5 MG/0.5 ML SYRINGE IVP PRN; -LACTATED RINGERS 1,000 ML IV SCH; +LIDOCAINE 1% (10MG/ML) FOR IV START INTRADERMA PRN; -LIDOCAINE 1% 20 ML VIAL (10MG/ML) FOR IV START INTRADERMA PRN; +MELOXICAM 7.5 MG TAB PO PRN; -MIDAZOLAM (PF) 2 MG/2 ML VIAL IV PRN; +ONDANSETRON 4 MG/2 ML VIAL IVP ONE; +TRANEXAMIC 1,000 MG/100ML-NACL 1,000 MG in SALINE 1 100ML.BAG IVPB PRN; -ceFAZolin IN SWFI 2 GM/20 ML SYRINGE IVP ONE; -fentaNYL (PF) 50 MCG/ML 2 ML AMP IV PRN
[2023-03-01] MEDS: LACTATED RINGERS 1,000 ML IV SCH (14:24)
[2023-03-01] MEDS ORDERED: DEXAMETHASONE SOD PHOSPHATE 4 MG/ML 1 ML VIAL IVP ONE (14:25)
[2023-03-01] MEDS ORDERED: fentaNYL (PF) 50 MCG/ML 2 ML AMP IVP ONE (14:44)
[2023-03-01] MEDS ORDERED: MIDAZOLAM 2 MG/2 ML VIAL IVP ONE (14:44)
[2023-03-01] MEDS ORDERED: ROPIVACAINE 5 MG/ML 30 ML VIAL ONE (15:46)
[2023-03-01] MEDS ORDERED: PROPOFOL 10 MG/ML 20 ML VIAL IV ONE (15:46)
[2023-03-01] MEDS ORDERED: MIDAZOLAM 2 MG/2 ML VIAL ONE (15:46)
[2023-03-01] MEDS ORDERED: fentaNYL (PF) 50 MCG/ML 2 ML AMP ONE (15:46)
[2023-03-01] MEDS ORDERED: TRANEXAMIC 1,000 MG/100ML-NACL PREMIX BAG ONE (15:46)
[2023-03-01] MEDS ORDERED: LACTATED RINGERS 1,000 ML IV ONE (17:11)
--- NOTE | 2023-03-01 17:16 | P.ANPRN ---
Procedure Note - Anesthesia - Nerve Block Performed Right [place] Single Time Out Performed: Yes ([id number]) Date of Procedure: 03/01/23 Procedure Start Time: 13:50 Procedure Stop Time: 13:55 Location of Patient: PreOp Indication: Acute Post-Operative Pain, Requested by Surgeon Specifically requested for management of pain by DrHong: Aaron Landa Sedation Type: Sedate with meaningful contact maintained Preparation: Sterile Prep Position: Supine Catheter: None Needle Types: Pajunk Needle Gauge: 21 Ultrasound used to visualize needle placement: Yes Ultrasound used to observe medication spread: Yes Injectate: 0.5% Ropivacaine (see comment for volume) (30cc) Blood Aspirated: No Pain Paresthesia on Injection Noted: No Resistance on Injection: Normal Image Stored and Saved: Yes Events: Uneventful and Well Tolerated
[2023-03-01] MEDS ORDERED: HYDROcodone/APAP 5-325MG 1 EACH TAB PO PRN (17:23)
[2023-03-01] MEDS ORDERED: HYDROmorphone 0.5 MG/0.5 ML SYRINGE IVP PRN ×3 (17:23)
[2023-03-01] MEDS ORDERED: ONDANSETRON 4 MG/2 ML VIAL IVP PRN (17:23)
[2023-03-01] MEDS ORDERED: NALOXONE 0.4 MG/ML 1 ML VIAL IV PRN (17:23)
--- NOTE | 2023-03-01 17:23 | P.OP ---
Date of Procedure: 03/01/23 Preoperative Diagnosis: Right hip osteoarthritis Postoperative Diagnosis: Right hip osteoarthritis Procedure(s) Performed: Direct anterior right total hip arthroplasty Implants: 1. Depuy Corail 125 size 11 with collar press-fit femoral stem 2. Depuy Corail 54 mm press-fit acetabular shell 3. Depuy Corail neutral polyethylene acetabular liner 36 ID 54 OD 4. Biolox delta ceramic femoral head +1.5 36 mm Anesthesia: regional (erector spinae block), spinal Surgeon: Aaron Landa Director Mortgage #1: Schuyler Willett Estimated Blood Loss (ml): 65 Pathology: none sent Condition: stable Disposition: PACU Indications for Procedure: 83-year-old patient who was seen with symptomatic right hip osteoarthritis. After having treatment options discussed, she elected to proceed with direct anterior right total hip arthroplasty. Operative Findings: See description of procedure Description of Procedure: The patient was taken to the operative suite. Patient underwent a spinal a nesthetic by the department of anesthesia. Patient was then transferred to the [place] table. Patient was given preoperative IV antibiotics and TXA. Both lower extremities were placed in standard leg spars. The hip was then prepped and draped in the normal sterile orthopedic fashion. A standard anterior incision was made beginning 3 cm lateral and 1 cm distal to the ASIS extending 10 cm. Dissection was then carried down through the subcutaneous soft tissues down to the fascia overlying the tensor fascia mary. An incision was now made through the fascia. Careful dissection was taken down exposing the tensor fascia mary muscle. A Cobra retractor was now placed along the medial femoral neck and a second one along the lateral femoral neck. The venous circumflex vessels were now identified, cauterized and clipped. We identified the anterior hip capsule. An incision was made through the hip capsule along the lateral border. I performed a partial anterior capsulectomy. Retractors were now placed around the femoral neck itself. A femoral neck cut was now made with a sagittal saw. It was completed with an osteotome at the lateral neck area. The femoral head was now removed without difficulty. The extremity was now rotated to 60 of external rotation. It was locked in position. Residual labrum was now debrided out. Serial reaming was performed of the acetabulum while Olivier BRADLEY assisted holding an anterior retractor for exposure. Once we reached the appropriate size and a trial was position and fit nicely. The appropriate size was now chosen opened and made available. It was introduced into the acetabulum without difficulty. The C-arm/fluoroscopy was now brought into the operative field. We made sure we had a true AP pelvic view. We now under direct C- arm/fluoroscopy introduced into the acetabular component with appropriate version and inclination. I held the cup in appropriate position well Olivier BRADLEY used a mallet to seat the acetabular component. I noted the component now to be well seated and stable. Acetabular cup introduce her was removed. The C-arm was pulled back. An appropriate liner was introduced and clicked into position. It was felt to be stable. At this point retractors were removed. The extremity was now placed into 120 external rotation with no traction. The leg was now dropped to the ground and adducted. Appropriate retractors were now positioned along the proximal femur. We also placed our femoral look into position. Additional capsular releasing was performed to gain access to the proximal femur. We now used a box osteotome. A canal finder was now utilized. Serial broaching was now performed with the assistance of Olivier BRADLEY tapping the broaches down with a mallet while held the broach in appropriate rotation and position. This was done until we reached the appropriate size with good overall rotational stability. I removed the broach. I did note a small crack in the calcar proximally. It was a very stable crack but I decided to put a cable as a prophylactic measure. I now applied a Stephani metallic cable along the proximal calcar area and secured it. I reintroduced the broach and appeared to be secure. Appropriate calcar planing was performed. A trial head/neck was placed into position. The hip was now reduced. The C-arm/fluoroscopy was brought back into the operative field. I obtained AP pelvis was demonstrated adequate leg length alignment. The C-arm/fluoroscopy was pulled back. Retractors were repositioned and the hip was dislocated. The leg was again taken down to the ground and adducted. Appropriate retractors were repositioned as well as the femoral hook. All trial components were removed. The femoral implant was opened along with the femoral head. The femoral implant was introduced on the appropriate handle into our pre-broached area. I held the component position well Olivier BRADLEY used a mallet to seat the femoral component. The femoral component was now noted to be well seated and stable.. The femoral head was introduced with good positioning and fixation noted. Retractors were now removed. The hip was now reduced. There appeared be good positioning of the hip confirmed on intraoperative fluoroscopy. Spot films were obtained to document this. A second gram of TXA was given. Bipolar cautery had been utilized intermittently through the procedure for hemostasis. The wound was irrigated copiously with pulse lavage mechanical irrigation. The fascia was repaired with Vicryl suture. The subcutaneous soft tissues were repaired in layers with Vicryl suture. The skin was approximated with pernio/Dermabond. Sterile dressings were applied. Patient was then awakened, transferred to a bed and taken to recovery in stable condition. Olivier BRADLEY assisted with the complex procedure.
--- NOTE | 2023-03-01 17:34 | FL ---
Intraoperative/procedural fluoroscopic services were provided. Total fluoroscopy time is 13 seconds w ith a total of 4 submitted images to PACS. Please see the operative/procedural note for further detai ls. DAP: 0.5668 mGym2 Gycm2
[2023-03-01] MEDS ORDERED: HYDROmorphone 0.5 MG/0.5 ML SYRINGE IVP ONE ×2 (17:52→18:07)
[2023-03-01] MEDS: SENNOSIDES-DOCUSATE SODIUM 1 EACH TAB PO SCH (21:49)
[2023-03-01] MEDS: HYDROcodone/APAP 5-325MG 1 EACH TAB PO PRN (21:49)
[2023-03-01] MEDS: SODIUM CHLORIDE 0.9% 1,000 ML IV SCH (21:51)
[2023-03-02] MEDS: LACTATED RINGERS 1,000 ML IV SCH (05:29)
[2023-03-02] MEDS: HYDROcodone/APAP 5-325MG 1 EACH TAB PO PRN ×3 (06:56→15:30)
[2023-03-02] MEDS: ENOXAPARIN 40 MG/0.4 ML SYRINGE SQ SCH (08:08)
[2023-03-02 09:31] LABS: HCT 35.7 % (37.2-46.3); HGB 11.8 g/dL (12.0-15.0); MCH 33.5 pg (27.0-32.0); MCHC 33.1 g/dL (32.0-37.0); MCV 101.4 FL (80.0-97.0); Mean Platelet Volume 11.2 FL (9.5-12.2); NRBC Per 100 WBC 0 X 10*3/uL (0.00-0.01); Platelet Count 265 X 10*3/uL (140-440); RBC 3.52 X 10*6/uL (4.10-5.20); RDW 12.2 % (11.5-14.5); WBC 10.87 X 10*3/uL (4.50-10.00)
[2023-03-02 10:07] LABS: Basophils # (A) 0.03 X 10*3/uL (0.00-0.10); Basophils % (A) 0.3 %; Eosinophils # (A) 0 X 10*3/uL (0.04-0.35); Eosinophils % (A) 0 %; Lymphocytes # (A) 0.72 X 10*3/uL (0.90-5.00); Lymphocytes % (A) 6.6 %; Monocytes # (A) 1.51 X 10*3/uL (0.20-1.00); Monocytes % (A) 13.9 %; Neutrophils # (A) 8.56 X 10*3/uL (1.80-7.70); Neutrophils % (A) 78.7 %
--- NOTE | 2023-03-02 11:13 | P.PN ---
Subjective Progress Note Date: 03/02/23 Principal diagnosis: Right hip osteoarthritis Patient was seen at bedside this morning lying semirecumbent position with dressing over right hip. Patient says her pain is controlled currently. Patient says she has gotten up a couple times overnight to use the restroom. Patient says she is hoping to go home later today. Patient says she has not yet worked with physical therapy. Patient says she has urinated without issue since surgery. Patient denies chest pain, fever, shortness of breath, nausea, vomiting, change in vision, loss of bowel/bladder control. Objective - Vital Signs Vital signs: Vital Signs Temp 97.4 F L 03/02/23 07:05 Pulse 79 03/02/23 07:05 Resp 16 03/02/23 07:05 BP 120/71 03/02/23 07:05 Pulse Ox 96 03/02/23 07:05 FiO2 Intake & Output 03/01/23 03/02/23 03/02/23 18:59 06:59 18:59 Intake Total 1650 Output Total 200 300 Balance 1450 -300 Weight 64.6 kg Intake: IV 1650 Output: Urine 300 Estimated Blood Loss 200 Other: Voiding Method Bedside Commode External Catheter # Voids 1 - Exam Right hip: Incision is clean, dry, and intact. The slower foam dressing is in good condition. There is minimal soft tissue swelling and ecchymosis surrounding the medial and lateral aspects of the incision. Calf is soft, no tenderness with palpation. Plantar flexion, dorsiflexion, EHL, FHL are intact. Sensory exam to light touch throughout the extremity is intact, dorsal pedis pulses 2+. - Labs CBC & Chem 7: 03/02/23 04:49 Assessment and Plan Assessment: 1. Right hip osteoarthritis - Postop day 1 status post right total hip arthroplasty Plan: 1. Right hip osteoarthritis - total hip arthroplasty performed yesterday, W edday, 03/01/2023. Patient stable at bedside this morning. Pending PT/OT evaluation, plan for discharge home with health services today. 2. Appreciate medical management 3. Pain management - [address] 4. GI prophylaxis - senna 5. DVT prophylaxis - Xarelto 6. PT/OT - weightbearing as tolerated with walker 7. Encourage incentive spirometer use 8. Discharge planning - discharge home today with health services pending PT/OT evaluations Time with Patient: Less than 30
--- NOTE | 2023-03-02 11:22 | P.DS ---
Providers Date of admission: 03/01/2023 Expected date of discharge: 03/02/23 Attending physician: Aaron Landa Consults: 03/01/23 17:23 Consult Physician Routine Consulting Provider: Dimitri Ocasio Reason/Comments: Medical management Do you want consulting provider notified?: Yes Primary care physician: Diamond Ocasio [facility] Course: Date of admission: 03/01/2023 Date of discharge: 03/02/2023 Admission diagnosis: Hip osteoarthritis Discharge diagnosis: Same Attending physician: Dr. Landa Surgical procedures: Right total hip arthroplasty Brief history: Patient is a 83-year-old female with a history of progressive primary right hip osteoarthritis. At this point patient has failed conservative treatment measures and has opted to proceed with a elective right total hip arthroplasty. Hospital course: Details of patient's surgery can be found in operative report. Patient tolerated the procedure well and was subsequently transported to orthopedic floor. Patient's orthopeidc and medical care was provided daily. Patient had daily laboratory tests performed for evaluation of overall blood counts. Patient had daily physical therapy to include strengthening range of motion as well as education with walker ambulation. Patient was treated with Lovenox for their postoperative DVT prophylaxis during their inpatient stay. Patient was noted to have a relatively uneventful postoperative course. Patient reported satisfactory pain control with oral pain medications by postoperative day 1. Patient showed satisfactory progress with physical therapy. Patient moved steadily through the program and had no difficulty meeting the goals by postoperative day 1. Given patient's otherwise satisfactory course and having met physical therapy goals, plan is to discharge patient home with health services on postoperative day 1. Discharge condition/disposition: Patient will be discharged home with health services in stable condition. Discharge medications: Instructions are given on resumption of patient's normal daily medications per primary care recommendation, in addition patient will be prescribed [place]; senna; aspirin 81 mg twice a day 30 days. Discharge instructions: 1. Wound care and infection precautions, keep incision dry and covered while showering, no lotions, creams, moisturizers. No soaking, tubs, pools, hottubs. Do not scrub over the incision. 2. Weight-bear as tolerated with walker / cane until follow-up. 3. Ice and elevate when necessary. Do not exceed 20 minutes per hour with ice pack. 4. Utilize compression sleeve until seen at first follow up appointment. 5. Visiting nursing care. 6. Home physical therapy including home CPM. 7. Pain meds and anticoagulants per prescription. 8. Pain medication has potential to cause constipation. Increase oral fluid and fiber intake. Contact primary care provider if you have not had a bowel movement within 48 hours after discharge 9. No anti-inflammatory medication until discussed at first post operative visit, this including Motrin, Aleve, Mobic, Diclofenac. 10. Follow up in office at 2 weeks postop with Olivier Willett PA-C / Kameron Hart PA-C 11. Follow up with your primary care doctor 7-10 days after discharge. 12. Contact [facility] with any questions, . Assessment: Right hip osteoarthritis Procedures: Right total hip arthroplasty Patient Condition at Discharge: Good Plan - Discharge Summary Discharge Rx Participant: Yes New Discharge Prescriptions: No Action Celecoxib [CeleBREX] 200 mg PO DAILY Levothyroxine Sodium [Synthroid] 50 mcg PO QAM Atorvastatin [Lipitor] 20 mg PO QAM Multivitamins, Thera [Multivitamin (formulary)] 1 tab PO DAILY Raloxifene [Evista] 60 mg PO QAM Acetaminophen [Tylenol Extra Strength] 500 mg PO BID Pantoprazole Sodium [Protonix] 40 mg PO QAM Discharge Medication List Atorvastatin [Lipitor] 20 mg PO QAM 04/06/18 [History] Celecoxib [CeleBREX] 200 mg PO DAILY 04/06/18 [History] Levothyroxine Sodium [Synthroid] 50 mcg PO QAM 04/06/18 [History] Acetaminophen [Tylenol Extra Strength] 500 mg PO BID 02/23/23 [History] Multivitamins, Thera [Multivitamin (formulary)] 1 tab PO DAILY 02/23/23 [History] Pantoprazole Sodium [Protonix] 40 mg PO QAM 02/23/23 [History] Raloxifene [Evista] 60 mg PO QAM 02/23/23 [History] Follow up Appointment(s)/Referral(s): Kameron Hart PAC [PHYSICIAN AEROSPACE PROJECT ENGINEER] - 2 Weeks Dimitri Ocasio MD [STAFF PHYSICIAN] - 1 Week Patient Instructions/Handouts: Anterior Hip Replacement (DC), Anterior Hip Replacement (GEN) Activity/Diet/Wound Care/Special Instructions: Orthopedic Discharge Instructions: 1. Wound care and infection precautions, keep incision dry and covered while showering, no lotions, creams, moisturizers. No soaking, pools, hot tubs. Do not scrub over incision. 2. Weight-bear as tolerated with walker / cane until follow-up. 3. Ice and elevate when necessary. Do not exceed 20 minutes per hour with ice pack. 4. Utilize compression sleeve until seen at first follow up appointment. 5. Pain meds and anticoagulants per prescription. 6. Pain medication has potential to cause constipation. Increase oral fluid and fiber intake. Contact primary care provider if you have not had a bowel movement within 48 hours after discharge. 7. No anti-inflammatory medication until discussed at first post operative visit, this including Motrin, Aleve, Mobic, Diclofenac. 8. Follow up in office at 2 weeks postop with Olivier Willett PA-C / Kameron Hart PA-C 9. Follow up with your primary care doctor 7-10 days after discharge. 10. Contact [facility] with any questions, . Keep incision clean, dry, intact. While showering, cover dressing with Saran wrap. Keep dressing on until 03/08/2023. Okay to remove dressing on 03/08/2023. It is okay to shower directly over incision once dressing is removed.
[2023-03-02] MEDS ORDERED: MULTIVITAMINS, THERA 1 EACH TAB PO SCH (12:00)
[2023-03-02] MEDS: LEVOTHYROXINE 50 MCG TAB PO SCH (12:44)
[2023-03-02] MEDS: PANTOPRAZOLE 40 MG/10 ML VIAL IVP SCH (12:44)
--- NOTE | 2023-03-02 13:43 | P.CONS ---
History of Present Illness - Reason for Consult Consult date: 03/02/23 Medical management hypertension, hypothyroidism Requesting physician: Aaron Landa - Chief Complaint Right hip osteoarthritis, status post direct anterior right total hip arthr - History of Present Illness This is an 83-year-old female with past medical history significant for right hip osteoarthritis, hypertension, hyperlipidemia, hearing disorder, hypothyroidism, Alzheimer's, former nicotine dependence, PONV and multiple other medical issues admitted with right hip osteoarthritis status post direct anterior right total hip arthroplasty. Tolerated procedure well. Pain controlled. Denies chest pain, palpitations or shortness of breath. Maintaining O2 sats in the high 90s on room air. Denies nausea vomiting or diarrhea. Passing flatus. Ambulated to the bathroom a couple times throughout the night. PT pending. Vital signs stable. Review of Systems Constitutional: Denied any fatigue denied any fever. Cardio vascular: denied any chest pain, palpitations Gastrointestinal denied any nausea vomiting Pulmonary: Denied any shortness of breath cough Neurologic denied any new focal deficits All inpatient medications were reviewed and appropriate changes in these medications as dictated in the interval history and assessment and plan. Past Medical History Past Medical History: Cancer, Hearing Disorder / Deafness, Hyperlipidemia, Hypertension, Memory Impairment, Thyroid Disorder Additional Past Medical History / Comment(s): "Recent fall, landed on backside saw Dr, had x-ray and everything ok." HIATAL HERNIA, ALZHEIMERS, BACK PAIN, HX E NDOMETRIAL CANCER(1999), STOMACH PAIN AND NAUSEA, "Tinnitus/Age related hearing loss." History of Any Multi-Drug Resistant Organisms: None Reported Past Surgical History: Hysterectomy Additional Past Surgical History / Comment(s): BILATERAL CATARACTS. Past Anesthesia/Blood Transfusion Reactions: Motion Sickness, Postoperative Nausea & Vomiting (PONV) Past Psychological History: No Psychological Hx Reported Smoking Status: Former smoker Past Alcohol Use History: Occasional Additional Past Alcohol Use History / Comment(s): SMOKED A TEENAGER. 5 beers per week on average. Past Drug Use History: None Reported - Past Family History Mother Family Medical History: Cancer Additional Family Medical History / Comment(s): OVARIAN CANCER. Medications and Allergies Home Medications Medication Instructions Recorded Confirmed Type Atorvastatin [Lipitor] 20 mg PO QAM 04/06/18 02/23/23 History Celecoxib [CeleBREX] 200 mg PO DAILY 04/06/18 02/23/23 History Levothyroxine Sodium [Synthroid] 50 mcg PO QAM 04/06/18 02/23/23 History Acetaminophen [Tylenol Extra 500 mg PO BID 02/23/23 02/23/23 History Strength] Multivitamins, Thera [Multivitamin 1 tab PO DAILY 02/23/23 02/23/23 History (formulary)] Pantoprazole Sodium [Protonix] 40 mg PO QAM 02/23/23 02/23/23 History Raloxifene [Evista] 60 mg PO QAM 02/23/23 02/23/23 History Aspirin [Adult Low Dose Aspirin EC] 81 mg PO BID #60 tab 03/02/23 Rx HYDROcodone/APAP 5-325MG [[place] 1 tab PO Q6HR PRN #28 tab 03/02/23 Rx 5-325] Sennosides/Docusate Sodium [Senna 1 each PO DAILY #20 capsule 03/02/23 Rx Plus 8.6-50 mg Softgel] Allergies Allergy/AdvReac Type Severity Reaction Status Date / Time erythromycin base Allergy Unknown Rash/Hives, Verified 03/01/23 13:38 [From E-Mycin] Red Skin Sulfa (Sulfonamide Allergy Unknown Rash/Hives, Verified 03/01/23 13:38 Antibiotics) Red Skin Physical Exam Vitals: Vital Signs Temp Pulse Resp BP Pulse Ox 03/02/23 08:33 96 03/02/23 07:05 97.4 F L 79 16 120/71 96 03/02/23 02:00 97.7 F 73 109/65 98 03/01/23 21:40 60 110/70 100 03/01/23 21:25 73 102/66 100 03/01/23 21:11 64 121/66 100 03/01/23 20:56 70 134/63 100 03/01/23 20:40 60 134/76 100 03/01/23 20:26 67 145/67 100 03/01/23 20:10 68 122/78 100 03/01/23 19:55 60 143/83 98 03/01/23 19:40 57 L 132/81 100 03/01/23 19:25 61 148/81 99 03/01/23 19:00 67 16 134/64 94 L 03/01/23 18:45 69 17 129/87 94 L 03/01/23 18:30 77 18 134/79 96 03/01/23 18:15 74 16 132/59 96 03/01/23 18:00 65 17 119/58 96 03/01/23 17:45 70 15 108/67 99 03/01/23 17:37 96.8 F L 79 16 113/54 98 03/01/23 14:50 70 16 194/85 96 03/01/23 14:07 98.4 F 86 16 192/84 98 Intake and Output 03/01/23 03/02/23 03/02/23 22:59 06:59 14:59 Intake Total 1150 Output Total 200 300 Balance 950 -300 Intake: IV 1150 Output: Urine 300 Estimated Blood Loss 200 Other: Voiding Method Bedside Commode External Catheter # Voids 1 Weight 64.6 kg PHYSICAL EXAM: VITAL SIGNS: [As above] GENERAL: Alert and oriented 3, sitting up in bed, no acute distress HEENT: Normocephalic, Conjunctivae normal. eyes normal. NECK: Supple, No JVD. No thyroid enlargement. No LNs CARDIOVASCULAR: S1, S2 regular.. No murmur RESPIRATION: Unlabored, equal air entry, Breath sounds diminished in the bases. No rhonchi or crackles. No bronchial breathing. ABDOMEN: Soft, nondistended, nontender . No guarding. no masses palpable. No ascites, No hepatosplenomegaly.Bowel sounds heard. LEGS: Right hip dressing clean dry and intact, no calf tenderness, No edema. no swelling NERVOUS SYSTEM: Cranial N 2-12 grossly normal. Moves all 4 limbs. Strength and sensation grossly intact.. Skin: Warm and dry, no rash. Results CBC & Chem 7: 03/02/23 04:49 Labs: Abnormal Lab Results - Last 24 Hours (Table) 03/02/23 Range/Units 04:49 WBC 10.87 H (4.50-10.00) X 10*3/uL RBC 3.52 L (4.10-5.20) X 10*6/uL Hgb 11.8 L (12.0-15.0) g/dL Hct 35.7 L (37.2-46.3) % MCV 101.4 H (80.0-97.0) FL MCH 33.5 H (27.0-32.0) pg Neutrophils # 8.56 H (1.80-7.70) X 10*3/uL Lymphocytes # 0.72 L (0.90-5.00) X 10*3/uL Monocytes # 1.51 H (0.20-1.00) X 10*3/uL Eosinophils # 0 L (0.04-0.35) X 10*3/uL Assessment and Plan Assessment: Right hip osteoarthritis status post direct anterior right total hip arthroplasty. PONV, history of Hypertension Hyperlipidemia Hypothyroidism Hearing disorder Memory impairment, Alzheimer's Former nicotine dependence History of endometrial cancer, 1999 Plan: Continue on current medication regime ,monitoring and symptomatic treatment. PT pending. Aggressive pulmonary toileting with incentive spirometer reinforced. Pain management, DVT prophylaxis as per primary. Discharge planning in progress as per orthopedic surgery. Follow-up with PCP in 1 week. Thank you for the consult. The impression and plan of care has been dictated as directed. : I performed a history and examination of this patient, discussed the same with the dictator. I agree with the dictator's note ,documented as a scribe. Any additional findings or plans will be noted.
[2023-03-02 14:03] VITALS: BMI 23.7
[2023-03-02] MEDS: SODIUM CHLORIDE 0.9% 1,000 ML IV SCH (16:28)
[2023-03-02] MEDS: traMADol 50 MG TAB PO PRN ×2 (17:13→22:30)
[2023-03-02] MEDS: SENNOSIDES-DOCUSATE SODIUM 1 EACH TAB PO SCH (19:55)
[2023-03-03] MEDS: LACTATED RINGERS 1,000 ML IV SCH (06:27)
[2023-03-03] MEDS: traMADol 50 MG TAB PO PRN ×2 (06:47→12:22)
[2023-03-03] MEDS: LEVOTHYROXINE 50 MCG TAB PO SCH (06:47)
[2023-03-03 08:27] VITALS: BP 130/72; PULSE 88; RESP 18; TEMP 99.7
[2023-03-03] MEDS ORDERED: ATORVASTATIN 20 MG TAB PO SCH (09:00)
[2023-03-03] MEDS ORDERED: MULTIVITAMINS, THERA 1 EACH TAB PO SCH (09:00)
[2023-03-03] MEDS ORDERED: RALOXIFENE 60 MG TAB PO SCH (09:00)
[2023-03-03] MEDS: ENOXAPARIN 40 MG/0.4 ML SYRINGE SQ SCH (09:07)
[2023-03-03] MEDS: PANTOPRAZOLE 40 MG/10 ML VIAL IVP SCH (09:09)
--- NOTE | 2023-03-03 09:41 | P.PN ---
Subjective Progress Note Date: 03/03/23 Principal diagnosis: Right hip osteoarthritis Patient was seen at bedside this morning lying semirecumbent position with dressing over right hip. Patient says her pain is under a little bit better controlled today. Patient says the tramadol seems to be working better than the Painter. Patient says she has gotten up a couple times overnight to use the restroom. Patient says she is hoping to go home later today. Patient says she has not yet worked with physical therapy this morning. Patient says she has urinated without issue since surgery. Patient denies chest pain, fever, shortness of breath, nausea, vomiting, change in vision, loss of bowel/bladder control. Objective - Vital Signs Vital signs: Vital Signs Temp 99.7 F H 03/03/23 07:25 Pulse 88 03/03/23 07:25 Resp 18 03/03/23 07:25 BP 130/72 03/03/23 07:25 Pulse Ox 95 03/03/23 08:17 FiO2 Intake & Output 03/02/23 03/03/23 03/03/23 18:59 06:59 18:59 Intake Total 1080 600 Balance 1080 600 Weight 64.6 kg Intake: Intake, IV Titration 600 Amount Sodium Chloride 0.9% 1, 550 000 ml @ 50 mls/hr IV . Q20H LIA Rx#:[id number] ceFAZolin 2 gm In Sodium 50 Chloride 0.9% 50 ml @ 100 mls/hr IVPB Q8HR LIA Rx# :[id number] Oral 1080 Other: # Voids 3 2 - Exam Right hip: Incision is clean, dry, and intact. The slower foam dressing is in good condition. There is minimal soft tissue swelling and ecchymosis surrounding the medial and lateral aspects of the incision. Calf is soft, no tenderness with palpation. Plantar flexion, dorsiflexion, EHL, FHL are intact. Sensory exam to light touch throughout the extremity is intact, dorsal pedis pulses 2+. - Labs CBC & Chem 7: 03/02/23 04:49 Labs: Abnormal Lab Results - Last 24 Hours (Table) 03/02/23 Range/Units 04:49 Neutrophils # 8.56 H (1.80-7.70) X 10*3/uL Lymphocytes # 0.72 L (0.90-5.00) X 10*3/uL Monocytes # 1.51 H (0.20-1.00) X 10*3/uL Eosinophils # 0 L (0.04-0.35) X 10*3/uL Assessment and Plan Assessment: 1. Right hip osteoarthritis - Postop day 2 status post right total hip arthroplasty Plan: 1. Right hip osteoarthritis - total hip arthroplasty performed 03/01/2023. Patient stable at bedside this morning. Pending PT/OT evaluation, plan for discharge home with health services today. 2. Appreciate medical management 3. Pain management - tylenol 4. GI prophylaxis - senna 5. DVT prophylaxis - Lovenox 6. PT/OT - weightbearing as tolerated with walker 7. Encourage incentive spirometer use 8. Discharge planning - discharge home today with health services pending PT/OT evaluations Time with Patient: Less than 30
--- NOTE | 2023-03-03 10:54 | P.PN ---
Subjective Progress Note Date: 03/03/23 - History of Present Illness 03/02/23 This is an 83-year-old female with past medical history significant for right hip osteoarthritis, hypertension, hyperlipidemia, hearing disorder, hypothyroidism, Alzheimer's, former nicotine dependence, PONV and multiple other medical issues admitted with right hip osteoarthritis status post direct anterior right total hip arthroplasty. Tolerated procedure well. Pain controlled. Denies chest pain, palpitations or shortness of breath. Maintaining O2 sats in the high 90s on room air. Denies nausea vomiting or diarrhea. Passing flatus. Ambulated to the bathroom a couple times throughout the night. PT pending. Vital signs stable. 03/03/2023 Reports pain control improving. Does not recall whether or not she had gotten up during the night to ambulate to the bathroom. PT pending. Currently maintaining O2 sats in the high 90s on 2 L nasal cannula. Denies chest pain, palpitations or shortness of breath. Objective - Vital Signs Vital signs: Vital Signs Temp 99.7 F H 03/03/23 07:25 Pulse 88 03/03/23 07:25 Resp 18 03/03/23 07:25 BP 130/72 03/03/23 07:25 Pulse Ox 95 03/03/23 08:17 FiO2 Intake & Output 03/02/23 03/03/23 03/03/23 18:59 06:59 18:59 Intake Total 1080 600 Balance 1080 600 Weight 64.6 kg Intake: Intake, IV Titration 600 Amount Sodium Chloride 0.9% 1, 550 000 ml @ 50 mls/hr IV . Q20H LIA Rx#:[id number] ceFAZolin 2 gm In Sodium 50 Chloride 0.9% 50 ml @ 100 mls/hr IVPB Q8HR LIA Rx# :[id number] Oral 1080 Other: # Voids 3 2 - Exam PHYSICAL EXAM: VITAL SIGNS: [As above] GENERAL: Alert and oriented 3, sitting up in bed, no acute distress. HEENT: Normocephalic, Conjunctivae normal. eyes normal. NECK: Supple, No JVD. CARDIOVASCULAR: S1, S2 regular. No murmur RESPIRATION: Unlabored, equal air entry, clear to auscultation, bilateral bases diminished. ABDOMEN: Soft, nondistended, nontender . No guarding. +BS LEGS: Right hip dressing clean dry and intact, minimal ecchymosis. no calf tenderness, No edema. no swelling NERVOUS SYSTEM: Cranial N 2-12 grossly normal. Moves all 4 limbs. Strength and sensation grossly intact. Skin: Warm and dry, no rash. - Labs CBC & Chem 7: 03/02/23 04:49 Assessment and Plan Assessment: Right hip osteoarthritis status post direct anterior right total hip arthroplasty. PONV, history of Hypertension Hyperlipidemia Hypothyroidism Hearing disorder Memory impairment, Alzheimer's Former nicotine dependence History of endometrial cancer, 1999 Plan: Continue on current medication regime ,monitoring and symptomatic treatment. PT pending. Increase ambulation as tolerated. Maintain aggressive pulmonary toileting with incentive spirometer reinforced. Obtain O2 sat on room air after ambulation. Wean off O2. Pain management, DVT prophylaxis as per primary. Discharge planning in progress as per orthopedic surgery. Follow-up with PCP in 1 week. The impression and plan of care has been dictated as directed. : I performed a history and examination of this patient, discussed the same with the dictator. I agree with the dictator's note ,documented as a scribe. Any additional findings or plans will be noted.
[2023-03-03] MEDS: SODIUM CHLORIDE 0.9% 1,000 ML IV SCH (11:16)
== END 2023-03-03 13:01 | disposition home health service (06) ==
LOC: OR 13:07 → 4SSUR 17:46 → OR 03-03 13:01
PROVIDERS: ATTEND Orthopaedic Surgery
DX: M16.11 Unilateral primary osteoarthritis, right hip (principal); M81.0 Age-related osteoporosis without current pathological fracture; E03.9 Hypothyroidism, unspecified; E78.5 Hyperlipidemia, unspecified; Z88.1 Allergy status to other antibiotic agents; Z88.2 Allergy status to sulfonamides; Z79.890 Hormone replacement therapy; Z79.899 Other long term (current) drug therapy
CPT/HCPCS: 94760 ×2; 97116 ×2; 97162; 64447; 86900; 86901; 85025; 86850; 73501; 27130; C1713; C1776; J2250; J1100; J0690 ×2; J2405; J1650 ×2; J3010; C9113 ×2; J1170

== ENCOUNTER → 2023-10-13 | Outpatient (CLI) | payer MEDICARE ==
--- NOTE | 2023-10-17 17:23 | MM ---
Reason for Exam: Screening (asymptomatic). Last mammogram was performed 4 year(s) and 10 month(s) ago. Patient History: Menarche at age 13. First Full-Term at age 21. Left ovary removed at age 60. Right ovary removed at age 60. Hysterectomy at age 60. Postmenopausal. Estrogen for 15 years until age 60. Progesterone for 15 years until age 60. Benign Excisional Biopsy on the left side. Maternal cousin had breast cancer. Risk Values: Marissa 5 year model risk: 1.7%. NCI Lifetime model risk: 2.2%. Prior Study Comparison: 09/04/2014 Bilateral Screening Mammogram, [facility]. 09/10/2017 Bilateral Screening Mammogram, [facility]. 11/18/2018 Bilateral Screening Mammogram, [facility]. Tissue Density: There are scattered areas of fibroglandular density. Findings: Analyzed By CAD. There is no suspicious group of microcalcifications or new suspicious mass in either breast. Overall Assessment: Negative, BI-RAD 1 Management: Screening Mammogram of both breasts in 1 year. . Patient should continue monthly self-breast exams. A clinical breast exam by your physician is recommended on an annual basis. This exam should not preclude additional follow-up of suspicious palpable abnormalities. Note on Marissa scores and lifetime risk: 1. A Marissa score greater than 3% is considered moderate risk. If this is the case, consider specialist referral to assess eligibility for a risk reducing agent. 2. If overall lifetime risk for the development of breast cancer is 20% or higher, the patient may qualify for future screening with alternating mammogram and breast MRI. Electronically signed and approved by: Ann Quesada M.D. Radiologist
== END | disposition home or self-care (01) ==
LOC: RADMAMWWP 10:42
PROVIDERS: ATTEND Family Medicine
DX: Z12.31 Encounter for screening mammogram for malignant neoplasm of breast (principal); Z78.0 Asymptomatic menopausal state; Z80.3 Family history of malignant neoplasm of breast
CPT/HCPCS: 77063; 77067

== ENCOUNTER → 2024-11-03 | Outpatient (CLI) | payer MEDICARE ==
--- NOTE | 2024-11-03 14:26 | MM ---
Reason for Exam: Screening (asymptomatic). Last mammogram was performed 1 year(s) and 1 month(s) ago. Patient History: Menarche at age 13. First Full-Term at age 21. Left ovary removed at age 60. Right ovary removed at age 60. Hysterectomy at age 60. Postmenopausal. Estrogen for 15 years until age 60. Progesterone for 15 years until age 60. Benign Excisional Biopsy on the left side. Maternal cousin had breast cancer. Risk Values: Marissa 5 year model risk: 1.6%. NCI Lifetime model risk: 2.0%. Prior Study Comparison: 09/10/2017 Bilateral Screening Mammogram, [facility]. 11/18/2018 Bilateral Screening Mammogram, [facility]. 10/13/2023 Bilateral MG 3D screening mammo w/cad, [facility]. Tissue Density: There are scattered areas of fibroglandular density. Findings: Analyzed By CAD. There is no suspicious group of microcalcifications or new suspicious mass in either breast. Overall Assessment: Benign, BI-RAD 2 Management: Screening Mammogram of both breasts in 1 year. . Patient should continue monthly self-breast exams. A clinical breast exam by your physician is recommended on an annual basis. This exam should not preclude additional follow-up of suspicious palpable abnormalities. Note on Marissa scores and lifetime risk: 1. A Marissa score greater than 3% is considered moderate risk. If this is the case, consider specialist referral to assess eligibility for a risk reducing agent. 2. If overall lifetime risk for the development of breast cancer is 20% or higher, the patient may qualify for future screening with alternating mammogram and breast MRI. [facility], , 11/03/2024 2:23 PM. Electronically signed and approved by: Audie Hilliard M.D. Radiologis
== END | disposition home or self-care (01) ==
LOC: RADMAMWWP 13:56
PROVIDERS: ATTEND Family Medicine
DX: Z12.31 Encounter for screening mammogram for malignant neoplasm of breast (principal); R92.323 Mammographic fibroglandular density, bilateral breasts; Z78.0 Asymptomatic menopausal state; Z80.3 Family history of malignant neoplasm of breast
CPT/HCPCS: 77063; 77067